=== PATIENT | female | born 1935 | race Caucasian/White ===

== ENCOUNTER 2017-04-01 14:10 | Observation (INO) | payer MEDICARE ==
[~2017-04-01] VITALS: Ht 167.6 cm; Wt 59.0 kg
[~2017-04-01 14:10] MED LIST: CLIN1CAP5 PO; LEVA500T PO; LEVO175T19 PO; LORTA5 PO
[2017-04-01 14:30] VITALS: BP 116/67; RESP 15; TEMP 98.2; O2SAT 99
[2017-04-01 14:57] VITALS: TEMP 98.5
[2017-04-01 15:13] VITALS: BP_SYST 115; BP_SYST 118; BP_SYST 133; BP_DIAS 64; BP_DIAS 69; BP_DIAS 76; RESP 18; O2SAT 99
--- NOTE | 2017-04-01 15:16 | RADRPT ---
EXAM DATE/TIME: 04/01/2017 14:54 [facility] COMPARISON: CHEST SINGLE AP, August 04, 2016, 0:34. INDICATIONS : Syncope, diarrhea MEDICAL HISTORY : None. SURGICAL HISTORY : None. ENCOUNTER: Initial ACUITY: 1 day PAIN SCORE: 0/10 LOCATION: Bilateral chest FINDINGS: A single view of the chest demonstrates hyperaerated without evidence of mass, infiltrate or effusion . The cardiomediastinal contours are unremarkable. Osseous structures are intact. Old left clavicle fracture/deformity. CONCLUSION: Hyperinflation which can be seen with COPD. No infiltrates. Ortega Leonard MD on April 01, 2017 at 15:13 Board Certified Radiologist. This report was verified electronically.
[2017-04-01 15:35] LABS: AUTOMATED NEUTROPHIL # 5.8 TH/MM3 (1.8-7.7); BASOPHIL % 0.5 % (0.0-2.0); EOSINOPHIL # 0.1 TH/MM3 (0-0.4); EOSINOPHIL % 1.2 % (0.0-4.0); HEMATOCRIT 38.7 % (35.0-46.0); HEMO FLAGS DIFF FINAL; LYMPH % 16.8 % (9.0-44.0); LYMPHOCYTE # 1.3 TH/MM3 (1.0-4.8); MEAN CELL VOLUME 100.2 FL (80.0-100.0); MEAN CORPUSCULAR HEMOGLOBIN 34.5 PG (27.0-34.0); MEAN CORPUSCULAR HGB CONC 34.5 % (32.0-36.0); NEUT % 74.5 % (16.0-70.0); PLATELET COUNT 214 TH/MM3 (150-450); RED BLOOD COUNT 3.86 MIL/MM3 (4.00-5.30); RED CELL DISTRIBUTION WIDTH 14.2 % (11.6-17.2); WHITE BLOOD COUNT 7.7 TH/MM3 (4.0-11.0)
--- NOTE | 2017-04-01 15:41 | PD ---
HPI Chief Complaint: Syncope/Near-Syncope Time Seen by Provider: 15:38 Travel History International Travel<30 days: No Contact w/Intl Traveler<30days: No Traveled to known affect area: No History of Present Illness HPI 81-year-old female that presents to the ED for evaluation of presyncope. Patient states that she was going to get some blood work done today and she had a syncopal episode. Per patient she did not hit her head but she possibly lost consciousness. She is not quite sure. Patient states that for the past 2-3 days she's been feeling weak and somewhat lightheaded. She denies any pain of any kind. She has any abdominal pain. No cough or runny nose. No fevers chills or sweats. Per patient today she started feeling Lightheaded and she had to sit down on the parent is when she had the syncopal episode. She does have a history of subdural hematoma. She also has a history of thyroid disease for which she takes Synthroid and she's had multiple changes in her medication. She denies any cardiac history. For the most part she states that she feels fine at this time but she does feel somewhat weak and whenever she stands up she feels lightheaded. She does have allergies to multiple medications. PFSH Past Medical History Arthritis: Yes Atrial Fibrillation: Yes Autoimmune Disease: No Anxiety: Yes (ANXIOUS AT TIMES) Heart Rhythm Problems: Yes (A-FIB) Cancer: No Cardiovascular Problems: Yes Cerebrovascular Accident: No Diabetes: No Diminished Hearing: Yes Endocrine: Yes Gastrointestinal Disorders: No Genitourinary: No Hypertension: Yes Immune Disorder: No Musculoskeletal: Yes Neurologic: No Psychiatric: Yes Reproductive: No Respiratory: No Immunizations Current: Yes Thyroid Disease: Yes Menopausal: Yes Past Surgical History Endocrine Surgery: Yes (THYROIDECTOMY) Neurologic Surgery: No Other Surgery: Yes (ABLATION FOR A-FLUTTER) Social History Alcohol Use: No Tobacco Use: No Substance Use: No Allergies-Medications (Allergen,Severity, Reaction): Coded Allergies: Egg Allergy (Verified Adverse Reaction, Intermediate, runny nose, ITCHY EYES, 04/01/17) Lidocaine (Verified Adverse Reaction, Intermediate, Dizziness, 04/01/17) Shellfish (Verified Adverse Reaction, Intermediate, runny nose, ITCHY EYES , 04/01/17) Iodine (Verified Adverse Reaction, Mild, runny nose, 04/01/17) Seafood (Verified Adverse Reaction, Mild, runny nose, ITCHY EYES, 04/01/17) Reported Meds & Prescriptions Reported Meds & Active Scripts Active Reported Levothyroxine (Levothyroxine Sodium) 150 Mcg Tab 150 Mcg PO DAILY Review of Systems Except as stated in HPI: all other systems reviewed are Neg Physical Exam Narrative GENERAL: SKIN: Warm and dry. HEAD: Atraumatic. Normocephalic. EYES: Pupils equal and round 4 mm reactive to light and accommodation. No scleral icterus. No injection or drainage. ENT: No nasal bleeding or discharge. Mucous membranes pink and moist. Tongue is midline. No uvula deviation. NECK: Trachea midline. No JVD. CARDIOVASCULAR: Regular rate and rhythm. No murmurs, S3, S4. RESPIRATORY: No accessory muscle use. Clear to auscultation. Breath sounds equal bilaterally. GASTROINTESTINAL: Abdomen soft, non-tender, nondistended. Hepatic and splenic margins not palpable. MUSCULOSKELETAL: Extremities without clubbing, cyanosis, or edema. No obvious deformities. Full range of motion of the upper and lower extremities bilaterally. 2+ pulses bilaterally. NEUROLOGICAL: Awake and alert. No obvious cranial nerve deficits. Motor grossly within normal limits. Five out of 5 muscle strength in the arms and legs. Normal speech. PSYCHIATRIC: Appropriate mood and affect; insight and judgment normal. Data Data Last Documented VS Vital Signs Date Time Temp Pulse Resp B/P Pulse Ox O2 Delivery O2 Flow Rate FiO2 04/01/17 15:13 70 18 133/64 74 18 115/69 78 118/76 04/01/17 15:13 99 04/01/17 14:57 98.5 Orders Electrocardiogram (04/01/17 14:55) Complete Blood Count With Diff (04/01/17 14:55) Comprehensive Metabolic Panel (04/01/17 14:55) Ckmb (Isoenzyme) Profile (04/01/17 14:55) Troponin I (04/01/17 14:55) Prothrombin Time / Inr (Pt) (04/01/17 14:55) Act Partial Throm Time (Ptt) (04/01/17 14:55) Urinalysis - C+S If Indicated (04/01/17 14:55) Magnesium (Mg) (04/01/17 14:55) Thyroid Stimulating Hormone (04/01/17 14:55) Chest, Single Ap (04/01/17 14:55) Ct Brain W/O Iv Contrast(Rout) (04/01/17 14:55) Iv Access Insert/Monitor (04/01/17 14:55) Ecg Monitoring (04/01/17 14:55) Oximetry (04/01/17 14:55) Orthostatic Vital Signs (04/01/17 14:55) Free Thyroxine (T4) (04/01/17 14:55) Free T3 (04/01/17 14:55) Place In Observation (04/01/17 ) Code Status (04/01/17 17:07) Vital Signs (Adult) Q4H (04/01/17 17:) Activity Oob With Assistance (04/01/17 17:) Bag Machine Tender / Telemetry .CONTINUOUS (04/01/17 17:07) Diet Heart Healthy (04/01/17 Dinner) Sodium Chloride 0.9% Flush (Ns Flush) (04/01/17 17:15) Sodium Chloride 0.9% Flush (Ns Flush) (04/01/17 21:00) Acetaminophen (Tylenol) (04/01/17 17:15) Ondansetron Inj (Zofran Inj) (04/01/17 17:15) Magnesium Hydroxide Liq (Milk Of Magnesi (04/01/17 17:15) Basic Metabolic Panel (Bmp) (04/02/17 06:00) Complete Blood Count With Diff (04/02/17 06:00) Pt Request For Service (04/01/17 17:07) Scd Bilateral/Knee High ZULEIKA.BID (04/01/17 17:07) Naloxone Inj (Narcan Inj) (04/01/17 17:15) Labs Laboratory Tests Test 04/01/17 15:00 White Blood Count 7.7 TH/MM3 Red Blood Count 3.86 MIL/MM3 Hemoglobin 13.3 GM/DL Hematocrit 38.7 % Mean Corpuscular Volume 100.2 FL Mean Corpuscular Hemoglobin 34.5 PG Mean Corpuscular Hemoglobin 34.5 % Concent Red Cell Distribution Width 14.2 % Platelet Count 214 TH/MM3 Mean Platelet Volume 9.0 FL Neutrophils (%) (Auto) 74.5 % Lymphocytes (%) (Auto) 16.8 % Monocytes (%) (Auto) 7.0 % Eosinophils (%) (Auto) 1.2 % Basophils (%) (Auto) 0.5 % Neutrophils # (Auto) 5.8 TH/MM3 Lymphocytes # (Auto) 1.3 TH/MM3 Monocytes # (Auto) 0.5 TH/MM3 Eosinophils # (Auto) 0.1 TH/MM3 Basophils # (Auto) 0.0 TH/MM3 CBC Comment DIFF FINAL Differential Comment Prothrombin Time 11.2 SEC Prothromb Time International 1.0 RATIO Ratio Activated Partial 22.4 SEC Thromboplast Time Sodium Level 141 MEQ/L Potassium Level 4.2 MEQ/L Chloride Level 106 MEQ/L Carbon Dioxide Level 27.4 MEQ/L Anion Gap 8 MEQ/L Blood Urea Nitrogen 23 MG/DL Creatinine 1.10 MG/DL Estimat Glomerular Filtration 48 ML/MIN Rate Random Glucose 125 MG/DL Calcium Level 8.8 MG/DL Magnesium Level 2.4 MG/DL Total Bilirubin 0.6 MG/DL Aspartate Amino Transf 18 U/L (AST/SGOT) Alanine Aminotransferase 15 U/L (ALT/SGPT) Alkaline Phosphatase 97 U/L Total Creatine Kinase 54 U/L Troponin I LESS THAN 0.02 NG/ML Total Protein 6.5 GM/DL Albumin 3.5 GM/DL Free Thyroxine 2.03 NG/DL Free Triiodothyronine (T3) 2.88 PG/ML pg/dL Thyroid Stimulating Hormone 0.339 uIU/ML [address] [place] [address] Medical Decision Making Medical Screen Exam Complete: Yes Emergency Medical Condition: Yes Medical Record Reviewed: Yes Interpretation(s) CBC & BMP Diagram 04/01/17 15:[address] 04/01/17 1455 Signed Impressions: Service Date/Time: Saturday, April 01, 2017 16:17 - CONCLUSION: Atrophy otherwise negative. Sumit Serrano MD FACR Chest X-Ray 04/01/17 1455 Signed Impressions: Service Date/Time: Saturday, April 01, 2017 14:54 - CONCLUSION: Hyperinflation which can be seen with COPD. No infiltrates. Ortega Leonard MD EKG shows sinus rhythm with no sign of acute ischemia or arrhythmia. Troponin and CK-MB negative. TSH was low and free T4 was a little high but Free T3 was normal. LFTS WNL Coags WNL Differential Diagnosis Dizziness versus syncope versus presyncope versus dehydration versus UTI versus infection versus CVA Narrative Course 81-year-old female that presents to the ED for evaluation of syncope. Patient was properly examined and was found to have signs and symptoms consistent with syncopal episode. At this time I recommend labs and imaging. Patient's hemoglobin with this plan. Patient was given IV fluids. Orthostatics were within normal limits. Labs and imaging showed no sign of acute disease. Patient also doesn't have any orthostatic bile signs feels very symptomatic when she stands up. Family does not feel comfortable with her at home. Family member who is her daughter mentions to me that she's actually had this episode getting worse and worse and she has not had any workups for it. She actually was going to see her doctor today for this but she did not make it. I do recommend admission for further workup. Family is in agreement with this plan. [facility] was contacted. Dr Bowen agrees to admission. Diagnosis Primary Impression: Syncopal episodes Qualified Code: R55 - Syncope, unspecified syncope type Admitting Information Admitting Physician Requests: Zack Cage April 01, 2017 15:41
[2017-04-01 15:45] LABS: APTT (PATIENT) 22.4 SEC (24.3-30.1); PROTHROMBIN TIME - PATIENT 11.2 SEC (9.8-11.6)
[2017-04-01] MEDS ORDERED: LEVO150T7 PO (15:49)
[2017-04-01 16:01] LABS: ANION GAP 8 MEQ/L (5-15); AST (GOT) 18 U/L (15-37); BICARBONATE 27.4 MEQ/L (21.0-32.0); BLOOD UREA NITROGEN 23 MG/DL (7-18); CHLORIDE 106 MEQ/L (98-107); GLOMERULAR FILTRATION RATE 48 ML/MIN (>89); MAGNESIUM 2.4 MG/DL (1.5-2.5); SODIUM (NA) 141 MEQ/L (136-145)
[2017-04-01 16:02] LABS: POTASSIUM 4.2 MEQ/L (3.5-5.1)
[2017-04-01 16:34] LABS: ALKALINE PHOSPHATASE 97 U/L (45-117); ALT (GPT) 15 U/L (10-53); FREE T3 2.88 PG/ML (2.18-3.98); FREE T4 2.03 NG/DL (0.76-1.46); TOTAL BILIRUBIN ADULT 0.6 MG/DL (0.2-1.0)
[2017-04-01 16:39] LABS: CREATINE KINASE 54 U/L (26-192)
--- NOTE | 2017-04-01 16:42 | RADRPT ---
EXAM DATE/TIME: 04/01/2017 16:17 [facility] COMPARISON: CT BRAIN W/O CONTRAST, August 20, 2016, 5:08. INDICATIONS : Syncope. RADIATION DOSE: 39.94 CTDIvol (mGy) MEDICAL HISTORY : Hypertension. Cardiovascular disease AFIB SURGICAL HISTORY : None. ENCOUNTER: Initial ACUITY: 1 day PAIN SCALE: 4/10 LOCATION: Bilateral cranial TECHNIQUE: Multiple contiguous axial images were obtained of the head. Using automated exposure control and adj ustment of the mA and/or kV according to patient size, radiation dose was kept as low as reasonably a chievable to obtain optimal diagnostic quality images. FINDINGS: There is marked central and cortical atrophy with dilatation of ventricular and sulcal spaces. There is no parenchymal hemorrhage, acute infarction or mass lesion identified. There are no extra-a xial fluid collections appreciated. The posterior fossa is unremarkable with midline fourth ventricl e. The portion of the orbits and paranasal sinuses visualized are unremarkable. CONCLUSION: Atrophy otherwise negative. Sumit Serrano MD FACR on April 01, 2017 at 16:39 Board Certified Radiologist. This report was verified electronically.
[2017-04-01] MEDS ORDERED: NALOXONE HCL 0.4 MG/ML AMP IV PRN (17:15)
[2017-04-01] MEDS ORDERED: ONDANSETRON HCL 4 MG/2 ML VIAL IVP PRN (17:15)
[2017-04-01] MEDS ORDERED: MAGNESIUM HYDROXIDE SUSP 30 ML CUP PO PRN (17:15)
[2017-04-01] MEDS ORDERED: SODIUM CHLORIDE 0.9% FLUSH 10 ML FLUSH IV FLUSH PRN (17:15)
[2017-04-01] MEDS ORDERED: ACETAMINOPHEN 325 MG TAB PO PRN (17:15)
--- NOTE | 2017-04-01 17:15 | HHI.HP ---
HPI Service [facility] Hospitalists Primary Care Physician Guadalupe Conroy MD Admission Diagnosis syncope Chief Complaint: syncope Travel History International Travel<30 Days: No Contact w/Intl Traveler <30 Da: No Traveled to Known Affected Are: No History of Present Illness Patient is a pleasant 81-year-old female who presented to the [facility] with complaint of near syncopal episode. Patient is accompanied by her daughter who is visiting from out of state. Daughter states the patient has been having near syncopal episodes and falling at home. Patient saw her primary care physician, Dr. Fournier 03/31/17 with same complaints. Patient planes of dizziness which is most acute when she tries to stand up. Patient had an episode a few days prior where she became dizzy trying to ambulate and then slumped onto a couch and fell asleep for 15-20 minutes. Daughter has noted worsening in the patient's mentation over the last year and a half. Patient is requiring more help in the home and they have hired a outside sales account executive. Review of Systems Constitutional: DENIES: Diaphoretic episodes, Fatigue, Fever, Weight gain, Weight loss, Chills, Dizziness, Change in appetite, Night Sweats Endocrine: DENIES: Heat/cold intolerance, Polydipsia, Polyuria, Polyphagia Eyes: DENIES: Blurred vision, Diplopia, Eye inflammation, Eye pain, Vision loss , Photosensitivity, Double Vision Ears, nose, mouth, throat: DENIES: Tinnitus, Hearing loss, Vertigo, Nasal discharge, Oral lesions, Throat pain, Hoarseness, Ear Pain, Running Nose, Epistaxis, Sinus Pain, Toothache, Odynophagia Respiratory: DENIES: Apneas, Cough, Snoring, Wheezing, Hemoptysis, Sputum production, Shortness of breath Cardiovascular: DENIES: Chest pain, Palpitations, Syncope, Dyspnea on Exertion , PND, Lower Extremity Edema, Orthopnea, Claudication Gastrointestinal: DENIES: Abdominal pain, Black stools, Bloody stools, BRB per rectum, Constipation, Diarrhea, GERD, Nausea, Reflux, Vomiting, Difficulty Swallowing, Anorexia Genitourinary: DENIES: Urinary frequency, Urinary incontinence, Urgency, Hematuria, Dysuria, Nocturia Musculoskeletal: DENIES: Joint pain, Muscle aches, Stiffness, Joint Swelling, Back pain, Neck pain Integumentary: DENIES: Abnormal pigmentation, Pruritus, Rash, Nail changes, Breast masses, Breast skin changes, Nipple discharge Hematologic/lymphatic: DENIES: Bruising, Lymphadenopathy Immunologic/allergic: DENIES: Eczema, Urticaria Neurologic: COMPLAINS OF: Poor Balance, DENIES: Abnormal gait, Headache, Localized weakness, Paresthesias, Seizures, Speech Problems, Tremor Psychiatric: DENIES: Anxiety, Confusion, Mood changes, Depression, Hallucinations, Agitation, Suicidal Ideation, Homicidal Ideation, Delusions, History of Bipolar, History of Schizophrenia Past Family Social History Past Medical History 1) L1 compression fracture (noted on lumbar x-ray 03/08/17) 2) osteoarthritis, hips and lumbar spine 3) anxiety 4) hypothyroidism Past Surgical History 1) cataract surgery 2) thyroid surgery, unspecified Reported Medications Reported Meds & Active Scripts Active Reported Levothyroxine (Levothyroxine Sodium) 150 Mcg Tab 150 Mcg PO DAILY Allergies: Coded Allergies: Egg Allergy (Verified Adverse Reaction, Intermediate, runny nose, ITCHY EYES, 04/01/17) Lidocaine (Verified Adverse Reaction, Intermediate, Dizziness, 04/01/17) Shellfish (Verified Adverse Reaction, Intermediate, runny nose, ITCHY EYES , 04/01/17) Iodine (Verified Adverse Reaction, Mild, runny nose, 04/01/17) Seafood (Verified Adverse Reaction, Mild, runny nose, ITCHY EYES, 04/01/17) Family History Noncontributory Social History 1) 2) history of alcohol use 3) former smoker 4) no illicit street drugs Physical Exam Vital Signs Vital Signs Date Time Temp Pulse Resp B/P Pulse Ox O2 Delivery O2 Flow Rate FiO2 04/01/17 15:13 70 18 133/64 74 18 115/69 78 118/76 04/01/17 15:13 99 04/01/17 14:57 98.5 04/01/17 14:30 98.2 15 116/67 99 Physical Exam GENERAL: This is a well-nourished, well-developed patient, in no apparent distress. SKIN: No rashes, ecchymoses or lesions. Cool and dry. HEAD: Atraumatic. Normocephalic. No temporal or scalp tenderness. EYES: Pupils equal round and reactive. Extraocular motions intact. No scleral icterus. No injection or drainage. ENT: Nose without bleeding, purulent drainage or septal hematoma. Throat without erythema, tonsillar hypertrophy or exudate. Uvula midline. Airway patent. NECK: Trachea midline. No JVD or lymphadenopathy. Supple, nontender, no meningeal signs. CARDIOVASCULAR: Regular rate and rhythm without murmurs, gallops, or rubs. RESPIRATORY: Clear to auscultation. Breath sounds equal bilaterally. No wheezes , rales, or rhonchi. GASTROINTESTINAL: Abdomen soft, non-tender, nondistended. No hepato-splenomegaly , or palpable masses. No guarding. MUSCULOSKELETAL: Extremities without clubbing, cyanosis, or edema. No joint tenderness, effusion, or edema noted. No calf tenderness. Negative Homans sign bilaterally. NEUROLOGICAL: Awake and alert. Cranial nerves II through XII intact. Motor and sensory grossly within normal limits. Five out of 5 muscle strength in all muscle groups. Normal speech. Laboratory Laboratory Tests Test 04/01/17 15:00 White Blood Count 7.7 Red Blood Count 3.86 Hemoglobin 13.3 Hematocrit 38.7 Mean Corpuscular Volume 100.2 Mean Corpuscular Hemoglobin 34.5 Mean Corpuscular Hemoglobin 34.5 Concent Red Cell Distribution Width 14.2 Platelet Count 214 Mean Platelet Volume 9.0 Neutrophils (%) (Auto) 74.5 Lymphocytes (%) (Auto) 16.8 Monocytes (%) (Auto) 7.0 Eosinophils (%) (Auto) 1.2 Basophils (%) (Auto) 0.5 Neutrophils # (Auto) 5.8 Lymphocytes # (Auto) 1.3 Monocytes # (Auto) 0.5 Eosinophils # (Auto) 0.1 Basophils # (Auto) 0.0 CBC Comment DIFF FINAL Differential Comment Prothrombin Time 11.2 Prothromb Time International 1.0 Ratio Activated Partial 22.4 Thromboplast Time Sodium Level 141 Potassium Level 4.2 Chloride Level 106 Carbon Dioxide Level 27.4 Anion Gap 8 Blood Urea Nitrogen 23 Creatinine 1.10 Estimat Glomerular Filtration 48 Rate Random Glucose 125 Calcium Level 8.8 Magnesium Level 2.4 Total Bilirubin 0.6 Aspartate Amino Transf 18 (AST/SGOT) Alanine Aminotransferase 15 (ALT/SGPT) Alkaline Phosphatase 97 Total Creatine Kinase 54 Troponin I LESS THAN 0.02 Total Protein 6.5 Albumin 3.5 Free Thyroxine 2.03 Free Triiodothyronine (T3) 2.88 pg/dL Thyroid Stimulating Hormone 0.339 3rd Gen Result Diagram: 04/01/17 1500 04/01/17 1500 Imaging Last Impressions Head CT 04/01/17 1455 Signed Impressions: Service Date/Time: Saturday, April 01, 2017 16:17 - CONCLUSION: Atrophy otherwise negative. Sumit Serrano MD FACR Chest X-Ray 04/01/17 1455 Signed Impressions: Service Date/Time: Saturday, April 01, 2017 14:54 - CONCLUSION: Hyperinflation which can be seen with COPD. No infiltrates. Ortega Leonard MD Head Magnetic Resonance Angiography 04/01/17 0000 Signed Impressions: Service Date/Time: Saturday, April 01, 2017 18:27 - CONCLUSION: Normal examination. Angel Jenkins MD Carotid Artery Ultrasound 04/01/17 0000 Signed Impressions: Service Date/Time: Saturday, April 01, 2017 21:04 - CONCLUSION: Mild atherosclerotic plaquing bilaterally. No focal high grade or hemodynamically significant stenosis. Andrew Henry MD Brain MRI 04/01/17 0000 Signed Impressions: Service Date/Time: Saturday, April 01, 2017 18:27 - CONCLUSION: No acute intracranial findings Angel Jenkins MD Septic Shock Reassessment Heart: Regular rate and rhythm Lungs: Clear Skin: Warm Peripheral Pulses: Bounding Right Radial Bounding Left Radial Bounding Right Popliteal Bounding Left Popliteal Bounding Right Dorsalis Pedis Bounding Left Dorsalis Pedis Bounding Right Posterior Tibial Bounding Left Posterior Tibial Capillary Refill: Brisk Assessment and Plan Problem List: (1) Syncopal episodes Status: Acute Plan: - Patient presents to ER with complaint of recurrent episodes of near-syncope and falls at home - Outpatient imaging studies show L1 compression fracture, bilateral hip arthritis, lumbar osteoarthritis as well - From history given by daughter and review of outpatient records, patient appears to be having age-related decline and requiring more help - obtain further studies to rule out CVA, including MRI and MRA of the brain - obtain bilateral carotid ultrasound - Obtain echocardiogram - Obtain Holter monitor - Request physical therapy evaluation (2) Hypothyroid Status: Acute Plan: - TSH is mildly suppressed - Patient is taking Synthroid 150 g daily, will decrease is 137 g daily upon discharge Problem Qualifiers (1) Syncopal episodes: Qualified Code: R55 - Syncope, unspecified syncope type (2) Hypothyroid: Qualified Code: E03.9 - Hypothyroidism, unspecified type Marshall Bowen DO April 01, 2017 17:15
[2017-04-01 17:20] LABS: BACTERIA, URINE FEW /hpf; BLOOD, URINE TRACE (NEG); COMMENT (UR) CULTURE INDICATED; CULTURE IF INDICATED CULTURE INDICATED; GLUCOSE,URINE NEG (NEG); KETONE, URINE NEG (NEG); NITRITE,URINE NEG (NEG); URINE COLOR LIGHT-YELLOW (YELLW/STRAW)
[2017-04-01] MEDS ORDERED: GADODIAMIDE PF 287 MG/ML 10 ML VIAL (for RAD MRI) IV ONE (18:49)
--- NOTE | 2017-04-01 19:10 | RADRPT ---
EXAM DATE/TIME: 04/01/2017 18:27 [facility] COMPARISON: MRI BRAIN W & W/O CONTRAST, April 01, 2017, 18:27. INDICATIONS : Syncope. MEDICAL HISTORY : Hypertension. SURGICAL HISTORY : Thyroidectomy. ENCOUNTER: Initial ACUITY: 1 day PAIN SCORE: 0/10 LOCATION: Please note a normal MRA of the brain does not entirely exclude the possibility of a small aneurysm, nor the possibility of distal intracranial vessel disease. TECHNIQUE: 3D time of flight MRA was performed. Source images, multiplanar STS MIP, and 3D volume MIP reconstru ctions were reviewed. FINDINGS: There is excellent visualization of the major intracranial arteries out to the second-order branch ve ssels. There is no evidence for aneurysm, vessel truncation or stenosis, and no evidence for vascula r malformation. CONCLUSION: Normal examination. Angel Jenkins MD on April 01, 2017 at 19:07 Board Certified Radiologist. This report was verified electronically.
--- NOTE | 2017-04-01 19:12 | RADRPT ---
EXAM DATE/TIME: 04/01/2017 18:27 [facility] COMPARISON: CT BRAIN W/O CONTRAST, April 01, 2017, 16:17. INDICATIONS : Syncope. CONTRAST: 10 cc Omniscan (gadodiamide) IV MEDICAL HISTORY : Hyperthyroidism. SURGICAL HISTORY : Thyroidectomy. ENCOUNTER: Initial ACUITY: 1 day PAIN SCORE: 0/10 LOCATION: cranial TECHNIQUE: Multiplanar, multisequence MRI of the brain was performed both prior to and following the administrat ion of paramagnetic contrast. FINDINGS: CEREBRUM: The ventricles are normal for age. No evidence of midline shift, mass lesion, hemorrhage or acute in farction. No extraaxial fluid collections are seen. The pituitary gland and suprasellar cistern are normal in configuration. WHITE MATTER: Mild patchy periventricular white matter T2 prolongation is likely microvascular ischemic. POSTERIOR FOSSA: The cerebellum and brainstem are intact. The 4th ventricle is midline. The cerebellopontine angle is unremarkable. The cerebellar tonsils are normal in position. DIFFUSION IMAGING: No focal areas of restricted diffusion are seen. No evidence of acute infarction. EXTRACRANIAL: The visualized portions of the orbits and paranasal sinuses are unremarkable. POST-CONTRAST: No abnormal areas of parenchymal or dural enhancement. No evidence of blood-brain barrier breakdown. CONCLUSION: No acute intracranial findings Angel Jenkins MD on April 01, 2017 at 19:09 Board Certified Radiologist. This report was verified electronically.
[2017-04-01] MEDS: 1/2 NS + KCL 20 MEQ INJ 1,000 ML IV SCH (19:25)
[2017-04-01 19:38] VITALS: BP 149/66; PULSE 77; RESP 18; TEMP 98.4; O2SAT 99
[2017-04-01] MEDS: SODIUM CHLORIDE 0.9% FLUSH 10 ML FLUSH IV FLUSH SCH (20:10)
[2017-04-01 22:44] LABS: FREE T4 2.18 NG/DL (0.76-1.46)
--- NOTE | 2017-04-01 23:23 | RADRPT ---
EXAM DATE/TIME: 04/01/2017 21:04 [facility] COMPARISON: No previous studies available for comparison. INDICATIONS : Syncope. MEDICAL HISTORY : Hypertension. Hearing loss. Afib. Arthritis. Anxiety. SURGICAL HISTORY : Thyroidectomy. ENCOUNTER: Initial ACUITY: 1 day PAIN SCORE: 0/10 LOCATION: Bilateral neck PEAK SYSTOLIC VELOCITIES (cm/sec): ICA/CCA RATIO: Right: 1.1 Left: 2.1 ICA: Right: 66 Left: 73 CCA: Right: 62 Left: 35 ECA: Right: 75 Left: 65 VERTEBRAL: Right: 48 antegrade Left: 67 antegrade Elevated flow velocities and ICA/CCA ratios have been found to correlate with increased degrees of vessel stenosis, calculated as percentage of diameter relative to a normal segment of distal ICA/CCA FINDINGS: RIGHT CAROTID: There is mild atherosclerotic plaquing at the bifurcation. No significant stenosis is visualized. Th e waveforms are within normal limits. LEFT CAROTID: There is mild vascular plaquing at the bifurcation. No significant stenosis is visualized. The wavef orms are within normal limits. VERTEBRAL ARTERIES: Antegrade flow is seen in both vertebral arteries. MISCELLANEOUS: None. CONCLUSION: Mild atherosclerotic plaquing bilaterally. No focal high grade or hemodynamically significant stenosi sGertrudis Henry MD on April 01, 2017 at 23:20 Board Certified Radiologist. This report was verified electronically.
[2017-04-02] VITALS (7 sets, daily range): BP systolic 137–179; BP diastolic 65–98; PULSE 72–94; RESP 18–20; TEMP 97.8–99.3; O2SAT 94–96
[2017-04-02] MEDS ORDERED: LEVOTHYROXINE SODIUM 150 MCG TAB PO SCH (06:00)
[2017-04-02] MEDS: 1/2 NS + KCL 20 MEQ INJ 1,000 ML IV SCH (06:07)
[2017-04-02 08:24] LABS: AUTOMATED NEUTROPHIL # 8.4 TH/MM3 (1.8-7.7); BASOPHIL # 0.1 TH/MM3 (0-0.2); BASOPHIL % 0.8 % (0.0-2.0); EOSINOPHIL # 0.1 TH/MM3 (0-0.4); EOSINOPHIL % 0.8 % (0.0-4.0); HEMATOCRIT 41.6 % (35.0-46.0); HEMO FLAGS DIFF FINAL; LYMPH % 9.7 % (9.0-44.0); MEAN CELL VOLUME 100.2 FL (80.0-100.0); MEAN CORPUSCULAR HEMOGLOBIN 33.2 PG (27.0-34.0); MEAN CORPUSCULAR HGB CONC 33.1 % (32.0-36.0); MONO % 7.4 % (0.0-8.0); NEUT % 81.3 % (16.0-70.0); PLATELET COUNT 198 TH/MM3 (150-450); RED BLOOD COUNT 4.15 MIL/MM3 (4.00-5.30); RED CELL DISTRIBUTION WIDTH 13.7 % (11.6-17.2); WHITE BLOOD COUNT 10.3 TH/MM3 (4.0-11.0)
[2017-04-02 09:00] LABS: BICARBONATE 28.9 MEQ/L (21.0-32.0); POTASSIUM 4.3 MEQ/L (3.5-5.1)
[2017-04-02] MEDS: SODIUM CHLORIDE 0.9% FLUSH 10 ML FLUSH IV FLUSH SCH ×2 (09:00→20:20)
--- NOTE | 2017-04-02 13:40 | EKG ---
Date Performed: 04/01/2017 Time Performed: 15:11:50 PTAGE: 81 years EKG: Sinus rhythm Since previous tracing, no significant change noted NORMAL ECG PREVIOUS TRACING : 09/17/2013 04.51 DOCTOR: Danielle Vallejo Interpretating Date/Time 04/02/2017 13:39:17
--- NOTE | 2017-04-02 16:00 | EC ---
Study Study Date:04/02/2017 STUDY CONCLUSIONS SUMMARY - Left ventricle: The cavity size was normal. Wall thickness was normal. Systolic function was mildly reduced. The estimated ejection fraction was in the range of 45% to 50%. Wall motion was normal; there were no regional wall motion abnormalities. - Aortic valve: Trace regurgitation. Valve area: 2.06cm^2 (Vmax). - Mitral valve: Mildly calcified annulus. - Pulmonary arteries: PA peak pressure: 36mm Hg (S). If LV function is below 40, please consider prescribing an ACEI or ARB or document rationale for non-use. PROCEDURE DATA STUDY STATUS: Elective. Procedure: Transthoracic echocardiography. Image quality was good. Scanning was performed from the parasternal, apical, and subcostal acoustic windows. Study completion: The patient tolerated the procedure well. Transthoracic echocardiography. M-mode, complete 2D, complete spectral Doppler, and color Doppler. Height: Height: 66in. Weight: Weight: 129.7lb. Body mass index: BMI: 21kg/m^2. Body surface area: BSA: 1.67m^2. Patient status: Inpatient. CARDIAC ANATOMY LEFT VENTRICLE: The cavity size was normal. Wall thickness was normal. Systolic function was mildly reduced. The estimated ejection fraction was in the range of 45% to 50%. Wall motion was normal; there were no regional wall motion abnormalities. AORTIC VALVE: Trileaflet; mildly thickened, mildly calcified leaflets. Doppler: Transvalvular velocity was within the normal range. There was no stenosis. Trace regurgitation. Valve area: 2.06cm^2 (Vmax). Indexed valve area: 1.23cm^2/m^2 (Vmax). AORTA: Aortic root: The aortic root was normal in size. MITRAL VALVE: Mildly calcified annulus. Doppler: Transvalvular velocity was within the normal range. There was no evidence for stenosis. No regurgitation. Peak gradient: 5mm Hg (D). LEFT ATRIUM: The atrium was normal in size. RIGHT VENTRICLE: The cavity size was normal. Wall thickness was normal. PULMONIC VALVE: Doppler: Transvalvular velocity was within the normal range. There was no evidence for stenosis. No regurgitation. TRICUSPID VALVE: Structurally normal valve. Doppler: Transvalvular velocity was within the normal range. No regurgitation. PULMONARY ARTERY: The main pulmonary artery was normal-sized. Systolic pressure was within the normal range. RIGHT ATRIUM: The atrium was normal in size. PERICARDIUM: There was no pericardial effusion. SYSTEMIC VEINS: Inferior vena cava: The vessel was normal in size. Patient weight: 129.7lb _Ejection fraction:_ 65-75% _Fractional shortening:_ 32% up to 5Kg 5-11.5Kg 11.6-22.9Kg 23-45Kg 45-57Kg Aortic Root 7-13 <17 13-22 17-27 17-27 LA diam 6-13 <23 24-38 33-47 37-40 RVID 10-17 7-15 7-15 7-18 8-17 LVIDd 12-22 <32 24-38 33-47 37-40 LVPW 2-4 3-6 5-7 6-8 7-8 IVS 2-4 3-6 5-7 6-8 7-8 BASIC MEASUREMENTS ADULT NORMAL Left ventricle LV internal dimension, ED, chordal *40.6 mm 43-52 level, PLAX LV internal dimension, ES, chordal 32.9 mm 23-38 level, PLAX Fractional shortening, chordal level, *19 % >29 PLAX LV posterior wall thickness, ED 11.1 mm IVS/LVPW ratio, ED 1.07 <1.3 Ventricular septum Septal thickness, ED 11.9 mm Aortic valve Leaflet separation 18 mm 15-26 Right ventricle RV internal dimension, ED, PLAX 24.3 mm 19-38 BASIC MEASUREMENTS ADULT NORMAL Aortic valve Leaflet separation 18 mm 15-26 Aorta Root diameter, ED 23 mm 20-37 Left atrium Anterior-posterior dimension, ES 32 mm 19-40 Anterior-posterior dimension index, ES 1.92 cm/m^2 <2.2 LA/aortic root ratio 1.39 DOPPLER MEASUREMENTS ADULT NORMAL Main pulmonary artery Pressure, S *36 mm Hg =30 Aortic valve Peak velocity, S 111 cm/s Valve area, Vmax 2.06 cm^2 Valve area index, Vmax 1.23 cm^2/m^2 Regurgitant velocity, ED 276 cm/s Regurgitant deceleration 1050 cm/s^2 Regurgitant pressure half-time 772 ms Regurgitant gradient, ED 30 mm Hg Mitral valve Peak E-wave velocity 108 cm/s Peak A-wave velocity 90.3 cm/s Deceleration time 197 ms 150-230 Peak gradient, D 5 mm Hg Peak E/A ratio 1.2 Tricuspid valve Regurgitant peak velocity 274 cm/s Peak RV-RA gradient, S 30 mm Hg Maximal regurgitant velocity 274 cm/s Systemic veins Estimated CVP 10 mm Hg Right ventricle RV pressure, S *40 mm Hg <30 Pulmonic valve Peak velocity, S 102 cm/s LEGEND: Mean values are shown as u=mean value. Asterisk (*) padron values outside specified normal range. Prepared and signed by Geo Reeves [id number]
--- NOTE | 2017-04-02 16:20 | HHI.PR ---
Subjective Remarks No new complaints. Objective Vitals Vital Signs Date Time Temp Pulse Resp B/P Pulse Ox O2 Delivery O2 Flow Rate FiO2 04/02/17 12:34 97.8 72 18 153/70 96 04/02/17 10:35 82 04/02/17 08:35 97.9 73 18 179/98 96 04/02/17 05:44 75 04/02/17 05:37 98.2 88 18 140/76 96 04/01/17 19:38 98.4 77 18 149/66 99 Result Diagram: 04/02/17 0804/02/17 0800 Imaging Last Impressions Head CT 04/01/17 1455 Signed Impressions: Service Date/Time: Saturday, April 01, 2017 16:17 - CONCLUSION: Atrophy otherwise negative. Sumit Serrano MD FACR Chest X-Ray 04/01/175 Signed Impressions: Service Date/Time: Saturday, April 01, 2017 14:54 - CONCLUSION: Hyperinflation which can be seen with COPD. No infiltrates. Ortega Leonard MD Head Magnetic Resonance Angiography 04/01/17 0000 Signed Impressions: Service Date/Time: Saturday, April 01, 2017 18:27 - CONCLUSION: Normal examination. Angel Jenkins MD Carotid Artery Ultrasound 04/01/17 0000 Signed Impressions: Service Date/Time: Saturday, April 01, 2017 21:04 - CONCLUSION: Mild atherosclerotic plaquing bilaterally. No focal high grade or hemodynamically significant stenosis. Andrew Henry MD Brain MRI 04/01/17 0000 Signed Impressions: Service Date/Time: Saturday, April 01, 2017 18:27 - CONCLUSION: No acute intracranial findings Angel Jenkins MD Objective Remarks GENERAL: This is a well-nourished, well-developed patient, in no apparent distress. CARDIOVASCULAR: Regular rate and rhythm without murmurs, gallops, or rubs. RESPIRATORY: Clear to auscultation. Breath sounds equal bilaterally. No wheezes , rales, or rhonchi. GASTROINTESTINAL: Abdomen soft, non-tender, nondistended. Normal active bowel sounds MUSCULOSKELETAL: Extremities without clubbing, cyanosis, or edema. NEURO: Alert & Oriented x4 to person, place, time, situation. Moves all ext x4 A/P Problem List: (1) Syncopal episodes Status: Acute Plan: - Patient presents to ER with complaint of recurrent episodes of near-syncope and falls at home - Outpatient imaging studies show L1 compression fracture, bilateral hip arthritis, lumbar osteoarthritis as well - From history given by daughter and review of outpatient records, patient appears to be having age-related decline and requiring more help - MRI and MRA of the brain (04/02/17) --> NO acute findings - bilateral carotid ultrasound (04/02/17) --> NO hemodynamically significant stenosis - echocardiogram --> results pending - Holter monitor --> pending - PT - anticipate d/c to SNF 04/03/17, but pt may be unwilling to go. - IF pt will NOT got to SNF, then will arrange [facility] (2) Hypothyroid Status: Acute Plan: - TSH is mildly suppressed - Patient is taking Synthroid 150 g daily, will decrease is 137 g daily upon discharge Problem Qualifiers (1) Syncopal episodes: Qualified Code: R55 - Syncope, unspecified syncope type (2) Hypothyroid: Qualified Code: E03.9 - Hypothyroidism, unspecified type Marshall Bowen DO April 02, 2017 16:20
[2017-04-03 00:15] VITALS: BP 152/63; PULSE 86; RESP 20; TEMP 99.1
[2017-04-03 04:17] VITALS: BP 109/57; PULSE 76; RESP 19; TEMP 99; O2SAT 96
[2017-04-03] MEDS ORDERED: LEVOTHYROXINE SODIUM 125 MCG TAB PO SCH (06:00)
[2017-04-03 08:34] VITALS: BP 110/60; PULSE 70; RESP 18; TEMP 97.8; O2SAT 95
[2017-04-03] MEDS: SODIUM CHLORIDE 0.9% FLUSH 10 ML FLUSH IV FLUSH SCH (09:00)
[2017-04-03 10:24] VITALS: PULSE 71
[2017-04-03] MEDS ORDERED: LEVO.125 PO (11:02)
--- NOTE | 2017-04-03 11:03 | HHI.DCPOC ---
Discharge Care Plan Diagnosis: (1) Syncopal episodes (2) Hypothyroid Goals to Promote Your Health * To prevent worsening of your condition and complications * To maintain your health at the optimal level Directions to Meet Your Goals Take your medications as prescribed Follow your dietary instruction Follow activity as directed Keep your appointments as scheduled Take your immunizations and boosters as scheduled If your symptoms worsen call your PCP, if no PCP go to Urgent Care Center or Emergency Room Smoking is Dangerous to Your Health. Avoid second hand smoke Call the 24-hour hour crisis hotline for domestic abuse at Marshall Bowen DO April 03, 2017 11:03
--- NOTE | 2017-04-03 11:07 | HHI.PR ---
Subjective Remarks No new complaints. Objective Vitals Vital Signs Date Time Temp Pulse Resp B/P Pulse Ox O2 Delivery O2 Flow Rate FiO2 04/03/17 10:24 71 04/03/17 08:34 97.8 70 18 110/60 95 04/03/17 04:17 99.0 76 19 109/57 96 04/03/17 00:15 99.1 86 20 152/63 04/02/17 20:00 94 04/02/17 19:37 98.3 72 20 137/84 94 04/02/17 19:37 99.3 87 20 143/65 96 04/02/17 12:34 97.8 72 18 153/70 96 04/02/17 04/02/17 04/03/17 14:59 22:59 06:59 Intake Total 240 ml 120 ml Output Total 2 ml Balance 240 ml 118 ml Intake Oral 240 ml 120 ml Output Urine Total 2 ml Stool Total 0 ml # Voids 3 4 Result Diagram: 04/02/17 0800 04/02/17 0800 Imaging Last Impressions Head CT 04/01/17 1455 Signed Impressions: Service Date/Time: Saturday, April 01, 2017 16:17 - CONCLUSION: Atrophy otherwise negative. Sumit Serrano MD FACR Chest X-Ray 04/01/17 1455 Signed Impressions: Service Date/Time: Saturday, April 01, 2017 14:54 - CONCLUSION: Hyperinflation which can be seen with COPD. No infiltrates. Ortega Leonard MD Head Magnetic Resonance Angiography 04/01/17 0000 Signed Impressions: Service Date/Time: Saturday, April 01, 2017 18:27 - CONCLUSION: Normal examination. Angel Jenkins MD Carotid Artery Ultrasound 04/01/17 0000 Signed Impressions: Service Date/Time: Saturday, April 01, 2017 21:04 - CONCLUSION: Mild atherosclerotic plaquing bilaterally. No focal high grade or hemodynamically significant stenosis. Andrew Henry MD Brain MRI 04/01/17 0000 Signed Impressions: Service Date/Time: Saturday, April 01, 2017 18:27 - CONCLUSION: No acute intracranial findings Angel Jenkins MD Objective Remarks GENERAL: This is a well-nourished, well-developed patient, in no apparent distress. CARDIOVASCULAR: Regular rate and rhythm without murmurs, gallops, or rubs. RESPIRATORY: Clear to auscultation. Breath sounds equal bilaterally. No wheezes , rales, or rhonchi. GASTROINTESTINAL: Abdomen soft, non-tender, nondistended. Normal active bowel sounds MUSCULOSKELETAL: Extremities without clubbing, cyanosis, or edema. NEURO: Alert & Oriented x4 to person, place, time, situation. Moves all ext x4 A/P Problem List: (1) Syncopal episodes Status: Acute Plan: - Patient presents to ER with complaint of recurrent episodes of near-syncope and falls at home - Outpatient imaging studies show L1 compression fracture, bilateral hip arthritis, lumbar osteoarthritis as well - From history given by daughter and review of outpatient records, patient appears to be having age-related decline and requiring more help - MRI and MRA of the brain (04/02/17) --> NO acute findings - bilateral carotid ultrasound (04/02/17) --> NO hemodynamically significant stenosis - echocardiogram --> results pending - Holter monitor --> pending - PT - pt appear to have a generalized decline likely d/t advanced age and OA. - From discussion with pt's daughter, pt likely has some early dementia as well with periods of agitation and paranoia. - trial of Razadyne - I will d/c pt to SNF for strengthening - pt might benefit from ASSISTED or LTC - will need to f/u on results of echocardiogram and holter monitor which are NOT currently available. (2) Hypothyroid Status: Acute Plan: - TSH is mildly suppressed - Patient is taking Synthroid 150 g daily, will decrease is 137 g daily upon discharge - recommend repeat TSH and free T4 in 3 - 4 weeks. Problem Qualifiers (1) Syncopal episodes: Qualified Code: R55 - Syncope, unspecified syncope type (2) Hypothyroid: Qualified Code: E03.9 - Hypothyroidism, unspecified type Marshall Bowen DO April 03, 2017 11:07
[2017-04-03] MEDS ORDERED: [UNRECOGNIZED DRUG - CODE] PO (11:12)
[2017-04-03 13:32] VITALS: BP 140/65; PULSE 72; RESP 18; TEMP 97.9; O2SAT 96
[2017-04-03 17:00] VITALS: BP 156/70; PULSE 70; RESP 18; TEMP 97.9; O2SAT 95
--- NOTE | 2017-04-03 18:00 | HM ---
Date Performed: 04/01/2017 Time Performed: 21:51:00 HOOKUP DATE: 04/01/17 09:51:00 PM Fri ANALYSIS START TIME: 04/01/2017 9:56:00 PM ANALYSIS END TIME: 04/02/2017 9:44:59 PM PATIENT AGE: 81 PATIENT HEIGHT: 66 PATIENT WEIGHT: 130 DRUG LIST PATIENT DIAGNOSIS: Neurological TEST NARRATIVE: The patient's average heart rate was 78 BPM. No episodes of tachycardia wer e noted. No episodes of bradycardia were noted. No pauses exceeding 2.0 seconds were noted. 135 ventricular ectopics, which represented < 1% of the total beat count, were noted. The highest ve ntricular ectopic frequency occurred from 02:00 AM to 03:00 AM Sat. During this time 23 VE(s) occurr ed. Ventricular ectopics were observed as 122 isolated beat(s), as 5 couplet(s) and as 1 run(s). So me of the ventricular beats occurred in bigeminal cycles. 8 supraventricular ectopics, which repr esented < 1% of the total beat count, were noted. The highest supraventricular ectopic frequency occ urred from 11:00 PM to 12:00 AM Sat. During this time 5 SVE(s) occurred. No episodes of ST depre ssion (defined as -1.0 mm or more) were noted in channel 1. No episodes of ST depression (defined as -1.0 mm or more) were noted in channel 2. No episodes of ST depression (defined as -1.0 mm or more) were noted in channel 3. No diary was returned by the patient. TEST INTERPRETATION: 24 Hour Holter Monitor-Dr. Danielle Vallejo Patient undergoes a Holter monitor t o see if there is any relationship of her neurologic complaints with an underlying rhythm disturbance . Only the expanded tracings are subject to interpretation. The rhythm is Sinus rhythm throughout the monitoring session, with the heart rate varying from 65 beats per minute to 115 beats per minute. The patient does have occassional premature ventricular contractions in couplets. There is one 3 beat episode of nonsustained ventricular tachycardia at a rate of 152 beats per minute. T he paitient has occassional premature atrial contractions, and rare episodes of nonsustained supraven tricular tachycardia, the longest episode being 7 beats and associated with organized atrial activity . There is no significant Bradycardia noted There was no diary provided, so it is unknown if the florence ent is symptomatic. Conclussion: 1. Holter monitor showing rare premature atrial contractions, and br ief episodes of nonsustained supraventricular tachycardia, but no atrial fibrillation or flutter. 2. premature venricular contractions with couplets in one episode of nonsustained ventricular tachycardi a. 3. No other significant tachyarrythmias or Prashant arrhythmias. 4. No diary provided, so it is unkno wn as to whether the patient is symptomatic. Signed by : Danielle Vallejo
[2017-04-04 09:48] LABS: RAPID PLASMA REAGIN SCREEN NON-REACTIVE (NON-REACTVE)
== END 2017-04-03 18:36 ==
LOC: NEPE 14:10 → NEDA 17:10 → NEPGCP 17:57
PROVIDERS: ADMIT Hospitalist; ATTEND Hospitalist
DX: R55 Syncope and collapse (principal); I10 Essential (primary) hypertension; I48.91 Unspecified atrial fibrillation; E03.9 Hypothyroidism, unspecified; M16.0 Bilateral primary osteoarthritis of hip; M47.9 Spondylosis, unspecified; H91.90 Unspecified hearing loss, unspecified ear; F41.9 Anxiety disorder, unspecified; Z88.8 Allergy status to other drugs, medicaments and biological substances; Z91.012 Allergy to eggs; Z91.013 Allergy to seafood; Z87.891 Personal history of nicotine dependence
CPT/HCPCS: 70450; 70544; 70553; 71010; 80048; 80053; 81001; 82140; 82550; 82607; 82746; 83735; 84439; 84443; 84481; 84484; 85025; 85610; 85730; 86592; 87077; 87086; 87186; 93005; 93225; 93226; 93306; 93880; 97162; 99285; A9579; G0378; G8987; G8988